=== PATIENT | female | born 1955 | race Caucasian/White ===

== ENCOUNTER → 2018-06-30 | Outpatient (CLI) | payer OTHER ==
[~2018-06-30] MED LIST: ASPI81TA94 PO; CA C1TAB10; CHOL10005 PO; LEVO-3 PO
--- NOTE | 2018-07-01 08:22 | RADIOLOGY IMAGING REPORT ---
FACILITY: [facility] [place] PATIENT NAME: SHANIKA OSHEA : [id number] MR: [id number] V: [id number] EXAM DATE: [id number] ORDERING PHYSICIAN: PEE CROWELL TECHNOLOGIST: Martina Pritchett PROCEDURE:BILATERAL DIGITAL SCREENING MAMMOGRAM WITH CAD ASSISTED INTERPRETATION & 3D TOMOSYNTHESIS COMPARISON:Prior mammograms 06/11/17, 06/27/15. INDICATIONS:SCREENING FINDINGS: Moderately dense fibroglandular tissue is seen throughout the breasts. Most of the parenchymal pattern has remained stable allowing for difference in mammographic technique & patient positioning. Just above midline on the Right MLO view in the middle 1/3 of the breast is a focal area of increased density for which Spot compression view is recommended. DIAGNOSTIC CATEGORY 0--INCOMPLETE: NEED ADDITIONAL IMAGING EVALUATION. RECOMMENDATIONS: ADDITIONAL MAMMOGRAPHIC VIEWS REQUIRED: RIGHT BREAST. IMPRESSION: BIRADS 0: Incomplete. Additional view of the Right breast recommended as described. Dictated by: Carolyn Jack M.D. on 06/30/2018 at 8:46 Transcribed by: RAHEL on 06/30/2018 at 9:29 Approved by: Carolyn Jack M.D. on 07/01/2018 at 8:21 [facility]
== END ==
LOC: MAMO 00:37
PROVIDERS: ATTEND Nurse Practitioner Family
DX: R92.2 Inconclusive mammogram (principal); Z80.3 Family history of malignant neoplasm of breast
CPT/HCPCS: 77063; 77067

== ENCOUNTER → 2018-08-04 | Outpatient (CLI) | payer OTHER ==
--- NOTE | 2018-08-04 15:42 | RADIOLOGY IMAGING REPORT ---
FACILITY: [facility] PATIENT NAME: SHANIKA OSHEA : [id number] MR: [id number] V: [id number] EXAM DATE: [id number] ORDERING PHYSICIAN: PEE CROWELL TECHNOLOGIST: Martina Pritchett PROCEDURE:RIGHT DIGITAL DIAGNOSTIC MAMMOGRAM COMPARISON:Prior mammogram 06/30/2018, 06/11/2017 & 06/27/2015. INDICATIONS:FURTHER EVAL FINDINGS: Additional imaging of the Right breast demonstrates scattered fibroglandular densities. The asymmetry in the superior Right breast seen on the MLO view of the screening mammogram does not persist and appears to represent overlapping fibroglandular tissue. No solid mass or suspicious microcalcifications. DIAGNOSTIC CATEGORY 1--NEGATIVE. RECOMMENDATIONS: ROUTINE MAMMOGRAM AND CLINICAL EVALUATION IN 1 YR. IMPRESSION: BIRADS 1: Negative. Dictated by: Rios Spain M.D. on 08/04/2018 at 13:59 Transcribed by: RAHEL on 08/04/2018 at 15:10 Approved by: Rios Spain M.D. on 08/04/2018 at 15:41 [facility]
== END ==
LOC: MAMO 00:47
PROVIDERS: ATTEND Nurse Practitioner Family
DX: Z12.31 Encounter for screening mammogram for malignant neoplasm of breast (principal)
CPT/HCPCS: 77061; 77065

== ENCOUNTER 2018-09-23 00:24 | Inpatient (IN) | payer MEDICARE, OTHER ==
[~2018-09-23] VITALS: Ht 162.6 cm; Wt 70.3 kg
[2018-09-23] VITALS (10 sets, daily range): BP systolic 120–141; BP diastolic 70–90
[~2018-09-23 00:24] MED LIST changes: -CA C1TAB10; +CA C1TAB10 PO
[2018-09-23] MEDS ORDERED: THROMBIN (BOVINE) 20,000 UNIT VIAL ONE (07:55)
[2018-09-23] MEDS ORDERED: ceFAZolin(*) 2GM/D5W 50ML 50 ML IVPB ONE (08:50)
[2018-09-23] MEDS ORDERED: PREGABALIN 150 MG CAPSULE PO ONE (08:50)
[2018-09-23] MEDS ORDERED: NORMOSOL R SOLN(*) 1000 ML BAG 1,000 ML IV PRN (08:50)
[2018-09-23] MEDS ORDERED: ACETAMINOPHEN 500 MG TAB PO ONE (08:50)
[2018-09-23] MEDS ORDERED: MIDAZOLAM 2 MG/2 ML VIAL IVP PRN (08:50)
[2018-09-23] MEDS ORDERED: FAMOTIDINE 20 MG TAB PO ONE (08:50)
[2018-09-23] MEDS ORDERED: LIDOCAINE/SOD BICARB 8.4% SYR ID ONE (08:50)
[2018-09-23] MEDS ORDERED: VANCOMYCIN 1 GM VIAL ONE (09:33)
[2018-09-23] MEDS ORDERED: REMIFENTANIL HCL 1 MG VIAL ONE (10:35)
[2018-09-23] MEDS ORDERED: PROPOFOL EMUL(*) 10MG/ML 20 ML 60 ML ONE ×2 (12:26→12:48)
[2018-09-23] MEDS ORDERED: HYDROmorphone HCL 2 MG/ML SDV ONE (12:48)
[2018-09-23] MEDS ORDERED: DEXAMETHASONE SOD PHOS 10MG/ML ONE (12:48)
[2018-09-23] MEDS ORDERED: ONDANSETRON 4 MG/2 ML VIAL ONE (12:48)
[2018-09-23] MEDS ORDERED: ROCURONIUM BROM 10 MG/ML 10 ML ONE (12:48)
[2018-09-23] MEDS ORDERED: SUGAMMADEX SOD 500 MG/5 ML SDV ONE (13:07)
--- NOTE | 2018-09-23 13:19 | RADIOLOGY IMAGING REPORT ---
FACILITY: [facility] [place] PATIENT NAME: Cristina Roman : 1955 MR: [id number] V: [id number] EXAM DATE: ORDERING PHYSICIAN: JASON DAS TECHNOLOGIST: Location: [facility] [place] Patient: Cristina Roman : 1955 Visit/Account:[id number] Date of Sevice: 09/23/2018 Exam type: CERVICAL SPINE 1 VIEW History: C5-C7 DISC HERNIATION/FUSION Comparison: Cervical radiograph dated August 27, 2018.. Findings: There are 2 cross table views of the cervical spine. First image demonstrates surgical hardware ante riorly at the C5-C6 disc space. Second image shows new disc replacement anteriorly at C5-C6 and C6-C 7. There is slight reversal of the normal cervical lordosis centered at these levels. Remaining dis c spaces are without significant degenerative changes. Mild multilevel facet arthropathy. No visual ized postoperative complication. IMPRESSION: As above. Report Dictated By: Vince Bonilla MD at 09/23/2018 1:12 PM Report E-Signed By: Vince Bonilla MD at 09/23/2018 1:15 PM WSN:[email or web address]
[2018-09-23] MEDS ORDERED: fentaNYL CITR 100 MCG/2 ML AMP ONE ×2 (13:36→14:31)
[2018-09-23] MEDS ORDERED: MAGNESIUM HYDROXIDE* 30ML UDCP PO PRN (14:05)
[2018-09-23] MEDS ORDERED: ACETAMINOPHEN(*)1000 MG/100 ML 100 ML IVPB PRN (14:05)
[2018-09-23] MEDS ORDERED: HYDROmorphone HCL 2 MG/ML SDV IVP PRN (14:05)
[2018-09-23] MEDS ORDERED: DIAZEPAM 5 MG TAB PO PRN (14:05)
[2018-09-23] MEDS ORDERED: BENZOCAINE/MENTHOL 1 EACH LOZG PO PRN (14:05)
[2018-09-23] MEDS ORDERED: LR(*) 1000 ML BAG 1,000 ML IV PRN (14:05)
[2018-09-23] MEDS ORDERED: FLUSH 10 ML SYR IVP PRN (14:05)
[2018-09-23] MEDS ORDERED: BISACODYL 10 MG SUPP PR PRN (14:05)
[2018-09-23] MEDS ORDERED: oxyCODONE HCL 5 MG CAP PO PRN (14:05)
[2018-09-23] MEDS ORDERED: diphenhydrAMINE 25 MG CAP PO PRN (14:05)
[2018-09-23] MEDS ORDERED: APAP/HYDROCODONE 325/5 TAB PO PRN (14:05)
--- NOTE | 2018-09-23 14:37 | OPERATIVE REPORT 1 ---
EVENT DATE: September 23, 2018 SURGEON: Master Calvillo MD ANESTHESIOLOGIST: Devon Jane M.D. ANESTHESIA: General endotracheal. ASSISTANT [place] ATTORNEY: Jono Mir PA-C PREOPERATIVE DIAGNOSIS Left C6 and C7 radiculopathy with C5-C6 and C6-C7 degenerative disk disease and foraminal stenosis. POSTOPERATIVE DIAGNOSIS Left C6 and C7 radiculopathy with C5-C6 and C6-C7 degenerative disk disease and foraminal stenosis. PROCEDURE PERFORMED C5-C6 and C6-C7 anterior cervical diskectomy and fusion. IV FLUIDS 1600 cc. ESTIMATED BLOOD LOSS 40 cc. IMPLANTS USED 1. 6 mm lordotic size small interbody device from [employer]. 2. 3.5 mm x 14 mm fixation screws, also from [employer], x4. SPECIMENS None. DRAINS 10- [place] round Thanh-Doran drain through the anterior neck. COMPLICATIONS None. DISPOSITION Post-Anesthesia Care Unit. INDICATIONS FOR SURGERY Ms. Roman is a 63-year-old female who presented with a chief complaint of radiating left upper extremity pain, numbness and tingling. The pain began in the neck radiating to the periscapular region and then down the posterior triceps, dorsal forearm and into the long ring and small fingers of the left arm. She also noted some weakness in that left upper extremity but denies any bowel or bladder dysfunction symptoms consistent with myelopathy. Her physical examination revealed positive Spurling's to the left reproducing symptoms in the C7 distribution. She had weakness in the biceps, 4+/5 on the left compared to 5/5 on the right, and weakness in the triceps at 4/5 on the left compared to 5/5 on the right. Hand intrinsics were somewhat weak as well at 4+/5 compared to 5/5 on the right. Her MRI and x-rays were reviewed that showed no spondylolisthesis or scoliosis. She had significant degenerative changes at multiple levels and the MRI showed left greater than right foraminal narrowing at C5-6 and C6-7, not so much at C4-C5. Secondary to ongoing symptoms and failure of nonsurgical care, Ms. Roman was offered and elected to undergo C5-C6 and C6-C7 anterior cervical diskectomy and fusion. Prior to surgery, I discussed in detail with the patient the possible risks of surgery. These risks include bleeding, infection, damage to surrounding structures, spinal cord injury, nerve root injury, spinal fluid leak, meningitis, , blindness, paralysis, autonomic nervous system dysfunction as well as unforeseen medical and surgical complications. Due to the anterior approach at the cervical spine, she also understands that she may have problems with swallowing difficulties, hoarseness, requirement of tube feeding, etc. An understanding that spinal surgery is more predictive at relieving extremity discomfort than axial spine pain was stressed. DESCRIPTION OF PROCEDURE On the day of surgery, the patient was met in the preoperative hold area and all questions were answered. The operative site was identified and marked by myself. The patient was brought in good condition to the operating room and after succumbing to anesthesia was positioned in the prone position with the neck slightly extended on a standard OR bed. The arms were secured loosely at the sides to afford access to the anterior cervical spine. The shoulders were retracted inferiorly using tape, again to afford appropriate access to the spine. All bony protuberances and soft tissues were well-padded in the standard fashion. Care was taken to maintain appropriate perfusion pressure during anesthesia. Preoperative antibiotics were administered according to the appropriate timing schedule. At the conclusion of the procedure, the sponge and needle counts were correct x2. A final time-out was undertaken by members of the operating team to confirm correct patient, correct levels and correct surgery. The patient was then prepped and draped in the standard sterile orthopedic fashion and a transverse incision was made overlying the intended surgical levels. Sharp dissection was carried out down to the platysma, which was divided. The carotid pulse was identified and palpated and blunt finger dissection was taken medial to the carotid sheath, coming down on the anterior aspect of the cervical spine. Soft tissues including longus colli muscles were elevated off the anterior cervical spine in a subperiosteal manner. A lateral radiograph was obtained to confirm appropriate spinal levels. A self-retaining retractor was then placed and distracted and the microscope was brought into the field. A #15 knife blade was used to incise the annulus of the C5-C6 disk. A combination of progressively smaller curettes was used to perform diskectomy from ventral to dorsal. A #2 Kerrison rongeur was used to take down the overhanging osteophytes from the C5 vertebrae. The vertebral endplates were cleared of all cartilaginous remnants using a combination of curettes and a high-speed bur. Once we got to the posterior annulus, a lamina welding machine feeder was placed into the disk space and distracted. There was no change in neurophysiologic monitoring. The posterior osteophyte coming down from C5 was taken down with a high-speed bur allowing us to access to the posterior annular fibers. These were dissected through with a forward angle curette as was the posterior longitudinal ligament. A nerve hook was passed through that rent in the PLL ensuring that we were actually behind the PLL and in the canal. #1 and #2 Kerrison rongeurs were used to remove the PLL and the posterior annulus and the #1 and #2 Kerrison's were similarly used to perform extensive foraminotomies bilaterally. At the conclusion of this, a nerve hook was passed out the foramen, ensuring adequate decompression of the exiting neural elements. The nerve hook was also passed behind the vertebral bodies to ensure no persistent compression of the cervical spinal cord. A 6 mm lordotic rasp was inserted into the interspace for appropriate fit. This was found to be the correct size so a 6 mm lordotic interbody implant was chosen. This was tapped into place and countersunk about 0.5 mm. Once this was achieved, the awl was used through the integrated holes in the device to penetrate the endplates and then 3.5 mm x 14 mm screws were placed into the C5 and C6 vertebral bodies respectively, securing the implant. Attention was then turned to the C6-C7 disk space. A diskectomy was performed in the exact manner as described above. Once this was completed and the PLL had been taken down and decompression of both the cord and the exiting neural elements had been achieved, we again chose a size 6 implant, which again was tapped into place, countersunk about 0.5 mm and then fixed in place with the 3.5 mm x 14 mm screws. The wound was then irrigated with copious sterile saline solution and closed in layers using interrupted sutures for the platysma, inverted interrupted sutures for the subcutaneous tissue and then a running subcuticular skin stitch. A drain was left deep to the platysma. Sponge and needle counts were correct x2. A final cross-table x-ray was obtained that showed excellent positioning of the implants. POSTOPERATIVE CARE PLAN The patient will remain in the hospital overnight. Her drain will be pulled in the morning. She will be discharged home with instructions to follow up in two weeks for wound check and examination. RIDGE
[2018-09-23] MEDS ORDERED: CETI-176 PO (15:22)
--- NOTE | 2018-09-23 15:37 | Hospitalist Consultation ---
History of Present Illness Requesting Physician Dr. Calvillo Reason for Consult Hypothyroidism Chief Complaint s/p cervical fusion History of Present Illness She was admitted s/p cervical fusion. It is reported the surgery went well and without complication. History Problems: (1) Hypothyroidism Status: Chronic Home Meds Reported Medications Cetirizine Hcl (ZYRTEC) 10 Mg Tablet, 0.5 TAB PO QDAY, TAB 09/23/18 Ca Carbonate/Vitamin D3/Vit K (Citracal Soft Chew) 1 Each Tab.chew, 1 TAB.CHEW PO DAILY 04/18/17 Cholecalciferol (Vitamin D3) (VITAMIN D3) 1,000 Unit Tablet, 1000 UNIT PO DAILY, TAB 04/18/17 Aspirin (ASPIRIN) 81 Mg Tab.chew, 81 MG PO QDAY, TAB.CHEW 04/18/17 Levothyroxine Sodium (LEVOTHYROXINE SODIUM) 100 Mcg Tablet, 100 MCG PO QDAY, TAB 04/18/17 Allergies: Coded Allergies: No Known Drug Allergies (Unverified , 04/18/17) Patient History: FH: breast cancer FATHER FH: type 2 diabetes FATHER MOTHER Hx Smoking: No Smoking Status: Never Smoker Caffeine Intake: Coffee Caffeine/Cups Per Day: 2/DAY Hx Alcohol Use: Yes Alcohol Used: Wine Hx Substance Use Disorder: No Social Drug Use: Never History of IV Drug Use: No Review of Systems All Systems Reviewed/Normal: Yes, Except as Noted Gastrointestinal: Nausea Exam Vital Signs Vital Signs Date Time Temp Pulse Resp B/P (MAP) Pulse Ox O2 Delivery O2 Flow Rate FiO2 09/23/18 15:06 97.4 108 12 141/90 (107) 96 Nasal Cannula 1.0 General Appearance: Alert, Awake, No Acute Distress, Afebrile Neuro: No Gross deficits Cardiovascular: Regular Rate and Rhythm Respiratory: No Respiratory Distress, Clear to Auscultation Psych: Alert & Oriented X3, Appropriate Mood & Affect Assessment and Plan Problems: (1) S/P cervical spinal fusion Status: Acute Assessment & Plan: Followed by Dr. Calvillo. (2) Hypothyroidism Status: Chronic Assessment & Plan: She is on chronic treatment with Levothyroxine. Continue. Venous Thromboembolism Antithrombotics Is Pt On Any Antithrombotics?: No Prophylaxis Tx Contraindicated Pharmacological Contraindicati: Surgical Contraindication IDANIA VALADEZP Sep 23, 2018 15:37
[2018-09-23] MEDS: ONDANSETRON 4 MG/2 ML VIAL IVP PRN ×2 (16:28→22:40)
--- NOTE | 2018-09-23 16:40 | NUR ---
Physical Therapy Impression PT eval complete. Pt only able to transfer supine<>sit. Verbal cueing for log rolling technique. Pt reported nausea sitting at EOB. VSS. Pt returned to supine due to nausea and nurse called. Physical Therapy Goals 1. Mod I bed mobility. 2. SBA transfers. 3. SBA gait x 150' with least restrictive device. 4. Ascend/descend 4 stairs with 1 handrail SBA. Patient's Goals
[2018-09-23] MEDS: ACETAMINOPHEN 500 MG TAB PO PRN (16:55)
[2018-09-23] MEDS ORDERED: NS(*) 0.9% 250 ML BAG 250 ML IV PRN (18:05)
[2018-09-23] MEDS: ceFAZolin(*) 2GM/D5W 50ML 50 ML IVPB SCH (18:43)
[2018-09-23] MEDS: DOCUSATE SODIUM 100 MG CAP PO SCH (21:35)
[2018-09-24] MEDS: ceFAZolin(*) 2GM/D5W 50ML 50 ML IVPB SCH ×2 (03:30→10:26)
[2018-09-24 03:34] VITALS: BP 102/75
[2018-09-24] MEDS: ACETAMINOPHEN 500 MG TAB PO PRN ×2 (04:08→10:26)
[2018-09-24] MEDS ORDERED: LEVOTHYROXINE SOD 0.1 MG TAB PO SCH (06:00)
[2018-09-24] MEDS ORDERED: DOCU240C84 PO (06:55)
[2018-09-24] MEDS ORDERED: LOR5/325 PO (06:56)
[2018-09-24 07:27] VITALS: BP 113/72
--- NOTE | 2018-09-24 08:46 | RADIOLOGY IMAGING REPORT ---
FACILITY: [facility] PATIENT NAME: Cristina Roman : 1955 MR: [id number] V: [id number] EXAM DATE: ORDERING PHYSICIAN: JASON DAS TECHNOLOGIST: Location: [facility] Patient: Cristina Roman : 1955 Visit/Account:[id number] Date of Sevice: 09/24/2018 Exam type: CERVICAL SPINE 2 OR 3 VIEW History: post op Comparison: September 23, 2018. Findings: Again noted are postsurgical changes from anterior fusion at C5-6 and C6-7. There is slight reversal of the normal cervical lordosis at these levels although appears similar to the prior study. There is mild disc space narrowing with anterior osteophytes at C4-5 and C7-T1 IMPRESSION: 1. Postsurgical changes from anterior fusion at C5-6 and C6-7 with mild reversal of the normal cervi julio lordosis at these levels and appears similar in alignment when compared to the prior study. Mild spondylotic changes at C4-5 and C7-T1 Report Dictated By: Carolyn Jack MD at 09/24/2018 8:38 AM Report E-Signed By: Carolyn Jack MD at 09/24/2018 8:41 AM WSN:[email or web address]
--- NOTE | 2018-09-24 08:48 | NUR ---
Physical Therapy Impression Pt met all PT goals with session this AM and is safe to d/c home from a mobility standpoint when medically appriopriate. Pt is Vlad for transfers and ambulation with no AD, and demonstrated safety with stair negotiation. PT instructed patient in donning/doffing cervical collar in mirror. No further concerns at this time. Physical Therapy Goals 1. Mod I bed mobility. 2. SBA transfers. 3. SBA gait x 150' with least restrictive device. 4. Ascend/descend 4 stairs with 1 handrail SBA. Patient's Goals
[2018-09-24] MEDS: DOCUSATE SODIUM 100 MG CAP PO SCH (09:17)
--- NOTE | 2018-09-24 10:13 | Hospitalist Progress Note ---
Subjective Progress Notes Subjective She was admitted after cervical spine surgery. She had no complaints this morning. She had no acute events overnight. Patient Complains of: Cardiovascular: No: Chest Pain Respiratory: No: Shortness of Breath Physical Exam Vital Signs Date Time Temp Pulse Resp B/P (MAP) Pulse Ox O2 Delivery O2 Flow Rate FiO2 09/24/18 07:27 93 Room Air 09/24/18 07:27 98.1 84 16 113/72 (86) 09/23/18 19:21 0.5 Intake and Output 09/24/18 07:00 Intake Total 3145 ml Output Total 45 ml Balance 3100 ml Intake Oral 590 ml IV Total 1855 ml Other 700 ml Output Drainage Total 30 ml Other 15 ml # Voids 1 General Appearance: Alert, Awake, No Acute Distress, Afebrile Neuro: No Gross deficits Cardiovascular: Regular Rate and Rhythm Respiratory: No Respiratory Distress, Clear to Auscultation Extremities: No Edema Psych: Alert & Oriented X3, Appropriate Mood & Affect Assessment and Plan Problems: (1) S/P cervical spinal fusion Status: Acute Assessment & Plan: Followed by Dr. Calvillo. (2) Hypothyroidism Status: Chronic Assessment & Plan: She is on chronic treatment with Levothyroxine. Continue. Exam Sepsis Risk: No Definite Risk IDANIA VALADEZ Sep 24, 2018 10:13
== END 2018-09-24 12:05 | disposition home or self-care (01) | DRG 473 ==
LOC: OR 00:24 → MED 15:05
PROVIDERS: ADMIT Orthopaedic Surgery; ATTEND Orthopaedic Surgery
PROC: 0RT30ZZ Resection of Cervical Vertebral Disc, Open Approach (ICD-10-PCS; 2018-09-23)
PROC: 01N10ZZ Release Cervical Nerve, Open Approach (ICD-10-PCS; 2018-09-23)
PROC: 0RG20A0 Fusion of 2 or more Cervical Vertebral Joints with Interbody Fusion Device, Anterior Approach, Anterior Column, Open Approach (ICD-10-PCS; principal; 2018-09-23 10:47)
DX: M50.11 Cervical disc disorder with radiculopathy, high cervical region (principal); M48.02 Spinal stenosis, cervical region; M25.78 Osteophyte, vertebrae; E03.9 Hypothyroidism, unspecified
CPT/HCPCS: 36415; 72020; 72040; 86850; 86900; 86901; 97161; C1713; J0131; J0690; J1100; J1170; J2250; J2405; J2704; J3010; J3370; J7050; L0120